=== PATIENT | male | born 1980 | race Caucasian/White ===

== ENCOUNTER 2018-06-16 08:53 | Day surgery (SDC) | payer OTHER, SELFPAY ==
[2018-06-16] MEDS: Cefazolin 2 GM in 0.9% Normal Saline 100 ML IV (07:00)
[2018-06-16 09:22] VITALS: BP 113/63; PULSE 77; RESP 16; TEMP 36.5; O2SAT 100; BMI 24.0
[2018-06-16 12:23] VITALS: BP 113/62; BP 137/92; PULSE 74; RESP 16; TEMP 36.1; O2SAT 100
--- NOTE | 2018-06-16 12:27 | PCM.IMDPSTOP ---
Immediate Post-Op Note Date of Procedure: 06/16/18 Primary Surgeon/Physician: Stephanie Coronado DPM shingle trimmer: Abhay Lynn Pre-Operative Diagnosis: L Achilles rupture Post-Operative Diagnosis: same Surgery/Procedure Performed:: L Achilles direct repair Description of Surgical Findings:: see dictation Estimated Blood Loss: minimal Specimen's removed: none Type of Anesthesia:: General/Regional - Admit VTE Documentation VTE Present on Admission: No VTE Mechan Device Prophylaxis: SCD's, Knee High HILARIA Hose VTE Pharm Prophylaxis ordered?: Yes
--- NOTE | 2018-06-16 12:28 | PCM.DC.ORTHO ---
Discharge Activity: May Not Drive, May not drive while taking narcotic pain medications., May Not Shower, Use Walker, Use Crutches Ice area for (Minutes): 20 - apply ice 20 minutes of each hour behind left knee while awake Weight Bearing Status: No weight bearing Keep extremity elevated above heart level: Operative Extremity Call your doctor if your incision/area has: Sudden Increased Bleeding, Increased Pain/ Swelling Call your doctor if you observe: Fever of 101 or Higher, Shortness of breath, Dizziness, Chest pain, Increased palpitations (irregular heartbeat), Calf discomfort, Uncontrolled pain Cleanse incision/area with: Keep Dressing Clean & Dry Allergies/Adverse Reactions: Allergies No Known Allergies Allergy (Verified 06/15/18 09:29) Medications to take at Discharge Aspirin 300 mg PO DAILY@0800 06/15/18 Multipak Vitamins 1 pack PO DAILY 06/15/18 Acetaminophen/Codeine #3 [Tylenol#3] 1 tab PO Q4H PRN PRN 7 Days #30 tab 06/16/18 The following prescriptions were given: Acetaminophen/Codeine #3 [Tylenol#3] 1 tab PO Q4H PRN PRN 7 Days #30 tab PRN Reason: Pain Primary Care Physician: Vincent Mcrae MD [Primary Care Provider] - Test Results: Test results from this visit will be discussed in further detail at your follow-up appointment, if applicable. Please Follow Up With: Stephanie Coronado DPM - At your previously scheduled post operative appointment Proposed Discharge Date: 06/16/18
[2018-06-16 12:30] VITALS: BP 113/62; BP 136/83; PULSE 64; RESP 16; O2SAT 100
--- NOTE | 2018-06-16 12:31 | DCINST_ITS ---
Discharge Activity: May Not Drive, May not drive while taking narcotic pain medications., May Not Shower, Use Walker, Use Crutches Ice area for (Minutes): 20 - apply ice 20 minutes of each hour behind left knee while awake Weight Bearing Status: No weight bearing Keep extremity elevated above heart level: Operative Extremity Call your doctor if your incision/area has: Sudden Increased Bleeding, Increased Pain/ Swelling Call your doctor if you observe: Fever of 101 or Higher, Shortness of breath, Dizziness, Chest pain, Increased palpitations (irregular heartbeat), Calf discomfort, Uncontrolled pain Cleanse incision/area with: Keep Dressing Clean & Dry Allergies/Adverse Reactions: Allergies No Known Allergies Allergy (Verified 06/15/18 09:29) Medications to take at Discharge Aspirin 300 mg PO DAILY@0800 06/15/18 Multipak Vitamins 1 pack PO DAILY 06/15/18 Acetaminophen/Codeine #3 [Tylenol#3] 1 tab PO Q4H PRN PRN 7 Days #30 tab 06/16/18 The following prescriptions were given: Acetaminophen/Codeine #3 [Tylenol#3] 1 tab PO Q4H PRN PRN 7 Days #30 tab PRN Reason: Pain Primary Care Physician: Vincent Mcrae MD [Primary Care Provider] - Test Results: Test results from this visit will be discussed in further detail at your follow- up appointment, if applicable. Please Follow Up With: Stephanie Coronado DPM - At your previously scheduled post operative appointment Proposed Discharge Date: 06/16/18
[2018-06-16] MEDS: Ketorolac 30 MG/ML Syringe IV (12:37)
[2018-06-16 12:44] VITALS: BP 113/62; BP 124/82; PULSE 71; RESP 16; O2SAT 100
[2018-06-16 12:59] VITALS: BP 113/62; BP 114/79; PULSE 75; RESP 16; TEMP 36; O2SAT 96
[2018-06-16 15:41] VITALS: BP 113/62; BP 116/68; PULSE 66; RESP 18; TEMP 36.1; O2SAT 99
--- NOTE | 2018-06-18 08:53 | OP.PCM_ITS ---
Report of Operation Date of Procedure: 06/16/18 Pre-Operative Diagnosis: L Achilles rupture Post-Operative Diagnosis: same Surgery/Procedure Performed:: L Achilles direct repair Description of Surgical Findings:: see dictation survey research analyst: Abhay Lynn Type of Anesthesia:: General/Regional Specimen's removed: none Estimated Blood Loss (mL): minimal Description of Procedure: Pt is a 38 yo M who suffered a L Achilles rupture while playing basketball on June 01, 2018. He presented to his local ER and then followed up in my clinic for an evaluation. At that time his clinical presentation indicated he did rupture his Achilles and an MRI was ordered for surgical planning. The MRI revealed a near complete rupture with 1.7 cm gapping. Patient would like surgical intervention today. All risks, complications, and alternatives were discussed with the patient, and the patient signed an informed consent. No guarantees were given. Procedure: On 06/16/2018, Sundar Braswell was visually and verbally identified in the preoperative holding area. The consent form was again reviewed with the patient, as were all risks, complications, and alternatives and the patient wished to proceed with the proposed surgery. The left posterior ankle was marked as the correct operative extremity. The patient was brought to the operating room and after induction by anesthesia a pneumatic thigh tourniquet was placed to the left lower extremity and the patient was moved to the operating room table in the prone position. A surgical time out was performed and all present were in agreement. At this time the left lower extremity was prepped and draped in the usual sterile fashion. after exsanguination with an esmarch the tourniquet was inflated to 300 mmHg. At this time attention was directed to the posterior heel, the deficit in the Achilles was again palpated and marked. A lazy S incision was made over the Achilles tendon. The incision was bluntly carried deep through the subcutaneous tissues with careful attention paid to all bleeders, which were clamped and tied or bovied as necessary. All vital neurovascular structures were retracted. The near complete rupture was easily visualized with an obvious gapping of the remaining tendon and mop ends noted. The ruptured site was flushed with normal sterile saline. Using 2.0 fiberwire x 4 the tendon endings were reapproximated under the appropriate tension and secured with the modified Nye technique. Paratenon was repaired with 3.0 vicryl, deep fascia was closed with 3.0 vicryl and the skin was closed with 3.0 prolene. Betadine soaked adaptic, dry sterile dressings were applied the patient was then placed in a well padded short leg cast with the ankle held in plantarflexion to hold the repair. Total tourniquet time was 77 minutes. Upon deflation immediate capillary refill was noted to all digits. The patient tolerated the procedure and anesthesia well. The patient was then transported to the postanesthesia care unit by a member of the anesthesia team and myself with all vital signs stable and neurovascular status of the left lower extremity equal to pre-operative levels. Anesthesia will perform a LLE block in the pacu. At the end of the case all sponge, needle and instrument counts were found to be correct. Grafts/Implants Used: 2.0 Fiberwire - Complications none - Admit VTE Documentation VTE Present on Admission: No VTE Mechan Device Prophylaxis: SCD's VTE Pharm Prophylaxis ordered?: Yes
== END 2018-06-16 16:08 | disposition home or self-care (01) ==
LOC: SDC 08:55 → AC 08:57
PROVIDERS: Family Provider Family Medicine; PCP Family Medicine; Referring Provider Podiatrist Foot & Ankle Surgery; Visit Provider Podiatrist Foot & Ankle Surgery
PROC: (CPT 27650; principal; 2018-06-16 10:35)
DX: S86.092A Other specified injury of left Achilles tendon, initial encounter (principal); M66.372 Spontaneous rupture of flexor tendons, left ankle and foot; R60.0 Localized edema; Z79.82 Long term (current) use of aspirin; X58.XXXA Exposure to other specified factors, initial encounter; Y93.67 Activity, basketball; Y92.89 Other specified places as the place of occurrence of the external cause; Y99.8 Other external cause status
CPT/HCPCS: 01472; 27650; J7120; J2405